=== PATIENT | male | born 1990 | race Caucasian/White ===

== ENCOUNTER 2020-08-14 16:40 | Emergency (ER) | payer MEDICARE, MEDICAID ==
[~2020-08-14] VITALS: Ht 177.8 cm; Wt 93.0 kg
[2020-08-14] MEDS ORDERED: VRAYLAR3 MG PO (16:59)
[2020-08-14] MEDS ORDERED: OLANZAPINE ODT5 MG PO (17:07)
[2020-08-14 17:46] LABS: URINE BLOOD NEGATIVE (Negative); URINE CLARITY CLEAR; URINE COLOR YELLOW; URINE GLUCOSE-RANDOM NEGATIVE (Negative); URINE KETONES NEGATIVE (Negative); URINE LEUKOCYTES-REFLEX NEGATIVE (Negative); URINE NITRITE-REFLEX NEGATIVE (Negative); URINE PROTEIN 1+ (Negative); URINE SPECIFIC GRAVITY >= 1.030 (1.005-1.030); URINE UROBILINOGEN 0.2 E.U./dl (0.2-1.0)
[2020-08-14 17:49] LABS: ICTOTEST (BILI CONFIRMATORY) Negative (Negative); URINE BILIRUBIN 1+ (Negative)
[2020-08-14 17:56] LABS: AMP/METHAMP Negative (Negative); BARBITURATES Negative (Negative); BENZODIAZEPINES Negative (Negative); COCAINE Negative (Negative); METHADONE Negative (Negative); OPIATES Negative (Negative); PCP Negative (Negative); THC POSITIVE (Negative)
[2020-08-14 18:43] LABS: ABSOLUTE BASOPHILS 0.1 thou/uL (0.0-0.2); ABSOLUTE LYMPHOCYTES 2.6 thou/uL (0.8-5.3); ABSOLUTE MONOCYTES 1.5 thou/uL (0.0-1.2); ABSOLUTE NEUTROPHILS 11.1 thou/uL (1.6-8.1); BASOPHILS 0.4 %; EOSINOPHILS 0.3 %; HEMATOCRIT 45.6 % (42.0-52.0); HEMOGLOBIN 16.3 gm/dL (14.0-18.0); LYMPHOCYTES 17.1 %; MCH 32.3 pg (26.0-34.0); MCHC 35.7 g/dL (28.0-37.0); MCV 90.3 fL (80.0-100.0); MONOCYTES 9.9 %; MPV 7.9 fl. (7.2-11.1); NUCLEATED RBCS 0 /100WBC; PLATELET COUNT* 297 thou/uL (150-400); POLYS 72.3 %; RBC 5.05 mil/uL (4.50-6.00); RDW-CV 12.4 % (10.5-14.5); WBC 15.3 thou/uL (4.0-11.0)
[2020-08-14 18:59] LABS: CALCIUM 8.7 mg/dL (8.5-10.1); CREATININE 1.2 mg/dL (0.6-1.3); POTASSIUM 3.3 mmol/L (3.5-5.1)
[2020-08-14 19:04] LABS: ALBUMIN 4.2 g/dL (3.4-5.0); TOTAL BILIRUBIN 0.7 mg/dL (<0.1-1.0); TOTAL PROTEIN 7.9 g/dL (6.4-8.2)
[2020-08-14 19:12] LABS: ALCOHOL < 10 mg/dL (<10); SALICYLATE < 2.8 mg/dL (2.8-20.0)
[2020-08-14 19:13] LABS: ACETAMINOPHEN < 2 ug/mL (10-30)
[2020-08-15 02:01] VITALS: BP 150/78
== END 2020-08-15 02:02 | disposition still patient (30) ==
LOC: M.ERS 16:40
PROVIDERS: Family Medicine
DX: F23 Brief psychotic disorder (principal); Z20.822 Contact with and (suspected) exposure to COVID-19; Z79.899 Other long term (current) drug therapy